=== PATIENT | male | born 1985 | race Caucasian/White ===

== ENCOUNTER 2018-02-15 20:45 | Emergency (ER) | payer OTHER ==
[2018-02-15] MEDS ORDERED: FAMOTIDINE 20 MG TABLET PO ONE (23:14)
--- NOTE | 2018-02-15 23:16 | ER Document Report ---
HPI - HPI Pain Level: 2 Context: Patient is a 32 year old male who presents to the ED complaining of epigastric pain, nausea and diarrhea for the past 2-3 days after she ate some hard boiled eggs in his fridge. Has not taken anything for his symptoms. Denies any difficulty tolerating PO today. admits to intermittent crmaping without focal abdominal pain - CONSTITUTIONAL Constitutional: DENIES: Fever, Chills - EENT EENT: REPORTS: Sore Throat. DENIES: Ear Pain, Eye problems - NEURO Neurology: DENIES: Headache, Weakness, Vision blurred, Dizzinesss / Vertigo - CARDIOVASCULAR Cardiovascular: DENIES: Chest pain - RESPIRATORY Respiratory: REPORTS: Trouble Breathing, Coughing - GASTROINTESTINAL Gastrointestinal: REPORTS: Abdominal Pain - URINARY Urinary: DENIES: Dysuria, Urgency, Frequency - REPRODUCTIVE Reproductive: DENIES: :, Postmenopausal, Abnormal bleeding / discharge - MUSCULOSKELETAL Musculoskeletal: DENIES: Extremity pain Past Medical History - Social History Smoking Status: Former Smoker Chew tobacco use (# tins/day): No Frequency of alcohol use: None Drug Abuse: None Family History: Reviewed & Not Pertinent Patient has suicidal ideation: No Patient has homicidal ideation: No Renal/ Medical History: Denies: Hx Peritoneal Dialysis Vertical Provider Document - CONSTITUTIONAL Agree With Documented VS: Yes Notes: PHYSICAL EXAM GENERAL: Alert, interacts well. HEAD: Normocephalic, atraumatic. EYES: Pupils equal, round, and reactive to light. Extraocular movements intact. ENT: Oral mucosa moist, tongue midline. NECK: Full range of motion. Supple. Trachea midline. LUNGS: Clear to auscultation bilaterally, no wheezes, rales, or rhonchi. No respiratory distress. HEART: Regular rate and rhythm. No murmurs, gallops, or rubs. ABDOMEN: Soft, nondistended, nontender. No guarding, rebound, or rigidity.. Bowel sounds present in all 4 quadrants. NEUROLOGICAL: Alert and oriented x4. Normal speech. PSYCH: Normal affect, normal mood. SKIN: Warm, dry, normal turgor. No rashes or lesions noted. - INFECTION CONTROL TRAVEL OUTSIDE OF THE [place] IN LAST 30 DAYS: No Course - Re-evaluation Re-evalutation: 02/15/18 23:15 Presentation of an overall well-appearing patient in no acute distress with complaints of nausea, vomiting, diarrhea. This is consistent with likely viral gastroenteritis vs. food poisoning. Patient has no abdominal tenderness on exam and specifically no tenderness in the RLQ, LLQ, RUQ. Overall well hydrated on exam. Able to tolerate oral intake here in the emergency department. Low clinical suspicion for any acute life-threatening etiology based on exam and history including acute cholecystitis, SBO, appendicitis, nephrolithiasis, or pylonephritis. Will plan for discharge at this time with return precautions and followup recommendations. Discharge - Discharge Clinical Impression: Gastritis Qualifiers: Gastritis type: unspecified gastritis Chronicity: acute Gastritis bleeding: without bleeding Qualified Code(s): K29.00 - Acute gastritis without bleeding Condition: Good Disposition: HOME, SELF-CARE Additional Instructions: Your symptoms appear to be most consistent with stomach or upper intestinal irritation. Please begin taking famotidine 40 mg in the morning and 40 mg at night. This medicine can be purchased directly [id number]. You may also take medicine such as Pepto-Bismol or Tums to assist with your pain. Please return to emergency department immediately if you have worsening of your pain, shortness of breath, vomiting, become unable to exert yourself due to pain or difficulty breathing, you pass out, or have any pain that radiates into your arms, jaw, or back. Please also return if you have any additional symptoms that are concerning to you. Referrals: [facility] [Provider Group] - Follow up as needed GURJIT MENDEZ MD [ACTIVE STAFF] - Follow up in 1 week
[2018-02-15 23:25] VITALS: BP 132/77
== END 2018-02-15 23:24 | disposition home or self-care (01) ==
LOC: ER 20:45
DX: K29.00 Acute gastritis without bleeding (principal); J02.9 Acute pharyngitis, unspecified; K59.00 Constipation, unspecified; R10.13 Epigastric pain; R11.0 Nausea; Z87.891 Personal history of nicotine dependence
CPT/HCPCS: 99283

== ENCOUNTER 2018-06-17 15:42 | Emergency (ER) | payer OTHER ==
[2018-06-17 15:53] VITALS: BP 135/69
--- NOTE | 2018-06-17 16:21 | ER Document Report ---
HPI - HPI Patient complains to provider of: Sore throat Pain Level: 3 Context: Patient is a 32-year-old healthy male complaining of sinus pain pressure and congestion, sore throat, cough 1 week. His and daughter are all sick with similar symptoms. Patient is afebrile. Associated Symptoms: Nonproductive cough, Earache, Headache. denies: Nausea, Vomiting Exacerbated by: Denies Relieved by: Denies Similar symptoms previously: Yes Recently seen / treated by doctor: No - EENT EENT: REPORTS: Sore Throat - REPRODUCTIVE Reproductive: DENIES: : Past Medical History - General Information source: Patient - Social History Smoking Status: Never Smoker Frequency of alcohol use: None Drug Abuse: None Lives with: Family Family History: Reviewed & Not Pertinent Patient has suicidal ideation: No Patient has homicidal ideation: No - Medical History Medical History: Negative Renal/ Medical History: Denies: Hx Peritoneal Dialysis Vertical Provider Document - CONSTITUTIONAL Agree With Documented VS: Yes Exam Limitations: No Limitations - INFECTION CONTROL TRAVEL OUTSIDE OF THE [place] IN LAST 30 DAYS: No - HEENT HEENT: Atraumatic, PERRLA, Pharyngeal Tenderness, Pharyngeal Erythema. negative : Pharyngeal Exudate Notes: Sinuses tender to palpation. No trismus. - NECK Neck: Normal Inspection, Supple - RESPIRATORY Respiratory: Breath Sounds Normal, No Respiratory Distress - CARDIOVASCULAR Cardiovascular: Regular Rate, Regular Rhythm - Nexium white flaky the first - MUSCULOSKELETAL/EXTREMETIES Musculoskeletal/Extremeties: MAEW, FROM - NEURO Level of Consciousness: Awake, Alert - of, Appropriate - DERM Integumentary: Warm, Dry, No Rash Course - Re-evaluation Re-evalutation: 06/17/18 16:20 History and physical are consistent with an acute sinusitis number respiratory infection. There are no signs of peritonsillar abscess, Kip's angina. No respiratory compromise. Patient is afebrile with no signs of dehydration or sepsis. Course of antibiotics will be prescribed. Home care, ED return precautions and primary care follow-up discussed with patient. Patient acknowledges understanding is agreeable with plan is stable for discharge - Vital Signs Vital signs: Temp Pulse Resp BP Pulse Ox 99.8 F 67 16 135/69 H 98 06/17/18 15:51 06/17/18 15:51 06/17/18 15:51 06/17/18 15:51 06/17/18 15:51 Discharge - Discharge Clinical Impression: Sinusitis Qualifiers: Sinusitis location: unspecified location Chronicity: acute Recurrence: non- recurrent Qualified Code(s): J01.90 - Acute sinusitis, unspecified Condition: Stable Disposition: HOME, SELF-CARE Instructions: Sinusitis ([facility]), Antibiotic Shot ([facility]), Steroid Medication Additional Instructions: Take medications as prescribed Recommend antihistamine/decongestant in addition to prescribed medications Push fluids May take ibuprofen for discomfort Follow-up with your primary care if pain persists Prescriptions: Amoxicillin Trihydrate [Amoxil 875 mg Tablet] 1 tab PO BID #20 tablet Prednisone [Deltasone 20 mg Tablet] 3 tab PO DAILY 5 Days tablet Forms: Return to Work
== END 2018-06-17 16:30 | disposition home or self-care (01) ==
LOC: ER 15:42
DX: J01.90 Acute sinusitis, unspecified (principal); J02.9 Acute pharyngitis, unspecified; R51 Headache
CPT/HCPCS: 87070; 87880; 99283

== ENCOUNTER 2019-01-13 11:43 | Emergency (ER) | payer OTHER ==
--- NOTE | 2019-01-13 12:12 | ER Document Report ---
ED Medical Screen (RME) - General Chief Complaint: Rectal Bleeding Stated Complaint: RECTAL BLEEDING Time Seen by Provider: 01/13/19 12:10 TRAVEL OUTSIDE OF THE [place] IN LAST 30 DAYS: No - HPI Notes: 01/13/19 12:10 Patient complaint of sudden onset of rectal bleeding this morning. He also has lower quadrant abdominal pain. He denies nausea, vomiting, chest pain or shortness of breath. Physical exam mild tenderness to palpation on the lower quadrant of the abdomen. - Related Data Allergies/Adverse Reactions: No Known Allergies Allergy (Verified 01/13/19 11:44) Past Medical History Renal/ Medical History: Denies: Hx Peritoneal Dialysis Physical Exam - Vital signs Vitals: Temp Pulse Resp BP Pulse Ox 98.0 F 62 18 122/75 96 01/13/19 11:50 01/13/19 11:50 01/13/19 11:50 01/13/19 11:50 01/13/19 11:50 Course - Vital Signs Vital signs: Temp Pulse Resp BP Pulse Ox 98.0 F 62 18 122/75 96 01/13/19 11:50 01/13/19 11:50 01/13/19 11:50 01/13/19 11:50 01/13/19 11:50
[2019-01-13 12:44] LABS: ABSOLUTE BASOPHILS # (AUTO) 0.1 10^3/uL (0.0-0.2); ABSOLUTE EOSINOPHILS # (AUTO) 0.1 10^3/uL (0.0-0.6); ABSOLUTE LYMPHOCYTES (AUTO) 2.1 10^3/uL (0.5-4.7); ABSOLUTE MONOCYTES (AUTO) 0.2 10^3/uL (0.1-1.4); ABSOLUTE NEUT (AUTO) 2.3 10^3/uL (1.7-8.2); BASOPHILS % (AUTO) 1.2 % (0-2); EOSINOPHILS % (AUTO) 1.5 % (0-6); HEMATOCRIT 44.2 % (37.9-51.0); HEMOGLOBIN 15.5 g/dL (13.5-17.0); LYMPHOCYTES % (AUTO) 44.1 % (13-45); MEAN CORPUSCULAR HEMOGLOBIN 30.3 pg (27.0-33.4); MEAN CORPUSCULAR VOLUME 87 fl (80-97); MONOCYTES % (AUTO) 3.4 % (3-13); PLATELET COUNT 223 10^3/uL (150-450); RED CELL DISTRIBUTION WIDTH 13.3 % (11.5-14.0); SEGMENTED NEUTROPHILS % (AUTO) 49.8 % (42-78); TOTAL CELLS COUNTED % (AUTO) 100 %; WHITE BLOOD COUNT 4.7 10^3/uL (4.0-10.5)
[2019-01-13 12:51] LABS: INTERNATIONAL RATION (INR) 0.93; PROTHROMBIN TIME 12.9 SEC (11.4-15.4)
[2019-01-13 12:52] LABS: PARTIAL THROMBOPLASTIN TIME 30.2 SEC (23.5-35.8)
[2019-01-13 12:59] LABS: ALANINE AMINOTRANSFERASE 27 U/L (21-72); ALBUMIN 5.1 g/dL (3.5-5.0); ALKALINE PHOSPHATASE 64 U/L (38-126); ANION GAP 10 (5-19); ASPARTATE AMINO TRANSFERASE 33 U/L (17-59); BILIRUBIN,DIRECT 0.2 mg/dL (0.0-0.4); BILIRUBIN,TOTAL 0.8 mg/dL (0.2-1.3); BLOOD UREA NITROGEN 17 mg/dL (7-20); CARBON DIOXIDE 28 mmol/L (22-30); CHLORIDE 101 mmol/L (98-107); GLUCOSE 88 mg/dL (75-110); POTASSIUM 4.5 mmol/L (3.6-5.0); SODIUM 139.3 mmol/L (137-145); TOTAL PROTEIN 7.7 g/dL (6.3-8.2)
--- NOTE | 2019-01-13 14:24 | ER Document Report ---
ED General - General Chief Complaint: Rectal Bleeding Stated Complaint: RECTAL BLEEDING Time Seen by Provider: 01/13/19 12:10 Primary Care Provider: ROBERTA BARR DO [Primary Care Provider] - Follow up as needed DICK WHITNEY MD [ACTIVE STAFF] - Follow up in 3-5 days GURJIT MENDEZ MD [ACTIVE STAFF] - Follow up in 3-5 days Notes: Patient is a 33-year-old male that presents to the emergency department for chief complaint of rectal bleeding. Patient states his been having on and off rectal bleeding over the past 3 months, but it seemed to be worse today and that is what brought him to the emergency department. He admits to having some bilateral lower abdominal pain associated with this. Denies having any nausea or vomiting. He has not seen anyone for this. He currently rates the pain in his abdomen is a 2 out of 10 describes as an aching sensation seems to be worse with his bowel movements. Denies any fevers, chills, night sweats, chest pain, shortness of breath, difficulty breathing. Past Medical History: Depression Past Surgical History: Denies surgical history Social History: Denies tobacco, alcohol or drug use. Family History: Reviewed and noncontributory for presenting illness Allergies: Reviewed, see documented allergy list. REVIEW OF SYSTEMS: Other than noted above, the 12 point review of systems was reviewed with the patient and were negative, all pertinent findings are included in the HPI. PHYSICAL EXAMINATION: Vital signs reviewed, nursing noted reviewed. GENERAL: Well-appearing, well-nourished and in no acute distress. HEAD: Atraumatic, normocephalic. EYES: Eyes appear normal, extraocular movements intact, sclera anicteric, conjunctiva are normal. ENT: nares patent, oropharynx clear without exudates. Moist mucous membranes. NECK: Normal range of motion, supple without lymphadenopathy LUNGS: Breath sounds clear to auscultation bilaterally and equal. No wheezes rales or rhonchi. HEART: Regular rate and rhythm without murmurs ABDOMEN: Soft, mild bilateral lower quadrant tenderness, normoactive bowel sounds. No rebound, guarding, or rigidity. No masses appreciated. EXTREMITIES: Nontender, good range of motion, no pitting or edema. NEUROLOGICAL: No focal neurological deficits. Moves all extremities spontaneously Motor and sensory grossly intact on exam. PSYCH: Normal mood, normal affect. SKIN: Warm, Dry, normal turgor, no rashes or lesions noted on exposed skin TRAVEL OUTSIDE OF THE [place] IN LAST 30 DAYS: No - Related Data Allergies/Adverse Reactions: No Known Allergies Allergy (Verified 01/13/19 11:44) Past Medical History - Social History Smoking Status: Never Smoker Frequency of alcohol use: None Drug Abuse: None Family History: Reviewed & Not Pertinent Patient has suicidal ideation: No Patient has homicidal ideation: No Renal/ Medical History: Denies: Hx Peritoneal Dialysis Psychiatric Medical History: Reports: Hx Depression Physical Exam - Vital signs Vitals: Temp Pulse Resp BP Pulse Ox 98.0 F 62 18 122/75 96 01/13/19 11:50 01/13/19 11:50 01/13/19 11:50 01/13/19 11:50 01/13/19 11:50 Course - Re-evaluation Re-evalutation: Patient seen and examined vital signs reviewed. Laboratory data and imaging were ordered as appropriate for the patient's prese nting symptoms and complaint, with consideration of any critical or life threatening conditions that may be associated with their obtained history and exam as noted above. Patient was treated with IV fluid Results were reviewed when available and demonstrated negative CT imaging, no anemia, blood work otherwise negative The patient was re-evaluated and was hemodynamically stable Evaluation was most consistent with rectal bleeding, unknown etiology, possible patient has ulcerative colitis or Crohn's disease, I want him to follow-up with gastroenterology. Results were discussed with the patient at this point, after careful consideration I feel that that patient can be discharged from the emergency department, the patient was educated treatments and reasons to return to the emergency department based on their presumed diagnosis as noted above, they were advised to followup with a primary care physician in 2-3 days. Patient was agreeable to plan of care. *Note is created using voice recognition software and may contain spelling, syntax or grammatical errors. Laboratory 01/13/19 01/13/19 01/13/19 12:26 12:26 12:26 WBC 4.7 RBC 5.10 Hgb 15.5 Hct 44.2 MCV 87 MCH 30.3 MCHC 35.0 RDW 13.3 Plt Count 223 Seg Neutrophils % 49.8 Lymphocytes % 44.1 Monocytes % 3.4 Eosinophils % 1.5 Basophils % 1.2 Absolute Neutrophils 2.3 Absolute Lymphocytes 2.1 Absolute Monocytes 0.2 Absolute Eosinophils 0.1 Absolute Basophils 0.1 PT 12.9 INR 0.93 APTT 30.2 Sodium 139.3 Potassium 4.5 Chloride 101 Carbon Dioxide 28 Anion Gap 10 BUN 17 Creatinine 0.95 Est GFR ( Amer) > 60 Est GFR (Non-Af Amer) > 60 Glucose 88 Calcium 10.0 Total Bilirubin 0.8 Direct Bilirubin 0.2 Neonat Total Bilirubin Not Reportable Neonat Direct Bilirubin Not Reportable Neonat Indirect Bili Not Reportable AST 33 ALT 27 Alkaline Phosphatase 64 Total Protein 7.7 Albumin 5.1 H Abdomen/Pelvis CT 01/13/19 14:23 IMPRESSION: No CT findings to explain abdominal pain or bloody diarrhea. - Vital Signs Vital signs: Temp Pulse Resp BP Pulse Ox 98.9 F 62 18 128/70 H 96 01/13/19 15:38 01/13/19 11:50 01/13/19 11:50 01/13/19 15:38 01/13/19 11:50 - Laboratory Result Diagrams: 01/13/19 12:26 01/13/19 12:26 Laboratory results interpreted by me: 01/13/19 12:26 Albumin 5.1 H Discharge - Discharge Clinical Impression: Rectal bleeding Condition: Stable Disposition: HOME, SELF-CARE Instructions: Rectal Bleeding, Unclear Cause ([facility]) Additional Instructions: Please follow-up with gastroenterology if you develop symptoms such as lightheadedness, passing out or feeling that your heart is racing, or you feel that the bleeding is continuing without stopping, do not hesitate to return to the emergency department sooner. Referrals: ROBERTA BARR DO [Primary Care Provider] - Follow up as needed DICK WHITNEY MD [ACTIVE STAFF] - Follow up in 3-5 days GURJIT MENDEZ MD [ACTIVE STAFF] - Follow up in 3-5 days
--- NOTE | 2019-01-13 15:04 | RADIOLOGY REPORT (SQ) ---
EXAM DESCRIPTION: CT ABD/PELVIS WITH IV ONLY COMPLETED DATE/TIME: 01/13/2019 2:45 pm REASON FOR STUDY: bloody diarrhea, abdominal pain COMPARISON: None. TECHNIQUE: CT scan of the abdomen and pelvis performed using helical scanning technique with dynamic intravenous contrast injection. No oral contrast. Images reviewed with lung, soft tissue, and bone windows. Reconstructed coronal and sagittal MPR images reviewed. Delayed images for evaluation of the urinary system also acquired. All images stored on PACS. All CT scanners at this facility use dose modulation, iterative reconstruction, and/or weight based d osing when appropriate to reduce radiation dose to as low as reasonably achievable (ALARA). [facility]: Dose Right [facility]: CareDose [facility]: Dose Right [facility]: Teradose 4D [facility]: Insurity CONTRAST TYPE AND DOSE: contrast/concentration: Isovue 350.00 mg/ml; Total Contrast Delivered: 89.0 ml; Total Saline Delivered: 70.0 ml RENAL FUNCTION: None required. The patient is less than 50 years old. RADIATION DOSE: CT Rad equipment meets quality standard of care and radiation dose reduction techniq ues were employed. CTDIvol: 6.6 - 9.4 mGy. DLP: 872 mGy-cm.. LIMITATIONS: None. FINDINGS: LOWER CHEST: No significant findings. No nodules or infiltrates. LIVER: Normal size. No masses. No dilated ducts. SPLEEN: Normal size. No focal lesions. PANCREAS: No masses. No significant calcifications. No adjacent inflammation or peripancreatic fluid collections. Pancreatic duct not dilated. GALLBLADDER: No identified stones by CT criteria. No inflammatory changes to suggest cholecystitis. ADRENAL GLANDS: No significant masses or asymmetry. RIGHT KIDNEY AND URETER: No solid masses. No significant calcifications. No hydronephrosis or hyd roureter. LEFT KIDNEY AND URETER: No solid masses. No significant calcifications. No hydronephrosis or hydr oureter. AORTA AND VESSELS: No aneurysm. No dissection. Renal arteries, SMA, celiac without stenosis. RETROPERITONEUM: No retroperitoneal adenopathy, hemorrhage or masses. BOWEL AND PERITONEAL CAVITY: No masses or inflammatory changes. No free fluid or peritoneal masses. APPENDIX: Normal. PELVIS: No mass. No free fluid. Normal bladder. ABDOMINAL WALL: No masses. No hernias. BONES: No significant or acute findings. OTHER: No other significant finding. IMPRESSION: No CT findings to explain abdominal pain or bloody diarrhea. TECHNICAL DOCUMENTATION: JOB ID: [id number] Quality ID # [id number]: Final reports with documentation of one or more dose reduction techniques (e.g., Au tomated exposure control, adjustment of the mA and/or kV according to patient size, use of iterative reconstruction technique) 2010 [employer]- All Rights Reserved Reading location - IP/workstation name: [email or web address]
[2019-01-13 15:39] VITALS: BP 128/70
== END 2019-01-13 15:37 | disposition home or self-care (01) ==
LOC: ER 11:43
DX: K62.5 Hemorrhage of anus and rectum (principal); R10.30 Lower abdominal pain, unspecified; F32.9 Major depressive disorder, single episode, unspecified
CPT/HCPCS: 36415; 74177; 80053; 85025; 85610; 85730; 99284

== ENCOUNTER 2019-02-18 16:47 | Emergency (ER) | payer OTHER ==
[2019-02-18 16:55] VITALS: BP 145/76
--- NOTE | 2019-02-18 18:17 | ER Document Report ---
HPI - HPI Time Seen by Provider: 02/18/19 16:56 Pain Level: 3 Context: Patient is a 33-year-old male who presents to the emergency department with a chief complaint of a sore throat. He has had a sore throat for the past week. His son was diagnosed with strep pharyngitis and is currently on amoxicillin. He denies any inability to swallow. He denies any fever. He does admit to having some sweats on and off. He does have a cough and notes some mucus. - CONSTITUTIONAL Constitutional: DENIES: Fever, Chills - EENT EENT: REPORTS: Sore Throat. DENIES: Ear Pain, Eye problems - NEURO Neurology: DENIES: Headache, Weakness, Vision blurred, Dizzinesss / Vertigo - CARDIOVASCULAR Cardiovascular: DENIES: Chest pain - RESPIRATORY Respiratory: DENIES: Trouble Breathing, Coughing - GASTROINTESTINAL Gastrointestinal: DENIES: Abdominal Pain, Black / Bloody Stools - URINARY Urinary: DENIES: Dysuria, Urgency, Frequency - REPRODUCTIVE Reproductive: DENIES: : - MUSCULOSKELETAL Musculoskeletal: DENIES: Extremity pain Past Medical History - Social History Smoking Status: Never Smoker Chew tobacco use (# tins/day): No Frequency of alcohol use: None Drug Abuse: None Family History: Reviewed & Not Pertinent Patient has suicidal ideation: No Patient has homicidal ideation: No Renal/ Medical History: Denies: Hx Peritoneal Dialysis Psychiatric Medical History: Reports: Hx Depression Vertical Provider Document - CONSTITUTIONAL Agree With Documented VS: Yes Exam Limitations: No Limitations General Appearance: No Apparent Distress - INFECTION CONTROL TRAVEL OUTSIDE OF THE [place] IN LAST 30 DAYS: No - HEENT HEENT: Atraumatic, Normocephalic, PERRLA, Pharyngeal Tenderness, Pharyngeal Erythema. negative: Conjuctival Injection, Pharyngeal Exudate, Tympanic Membrane Red, Tympanic Membrane Bulging - NECK Neck: Normal Inspection. negative: Lymphadenopathy-Left, Lymphadenopathy-Right - RESPIRATORY Respiratory: Breath Sounds Normal, No Respiratory Distress - CARDIOVASCULAR Cardiovascular: Regular Rate Pulses: Normal: Radial - MUSCULOSKELETAL/EXTREMETIES Musculoskeletal/Extremeties: FROM - NEURO Level of Consciousness: Awake, Alert, Appropriate Motor/Sensory: No Motor Deficit, No Sensory Deficit - DERM Integumentary: Warm, Dry Course - Re-evaluation Re-evalutation: 02/18/19 18:17 Patient's rapid strep is negative at this time. It will be sent for culture. I do not suspect a peritonsillar abscess, Kip's angina, or any life-threatening this time. Patient's airway is patent. He will be started on Claritin, which she has at home. Advised him that he needs to take his Claritin every day. He will be called if his culture is positive. Verbal discharge instructions were given to the patient. They verbalized understanding. They are stable for discharge. - Vital Signs Vital signs: Temp Pulse Resp BP Pulse Ox 98.2 F 82 16 145/76 H 98 02/18/19 16:53 02/18/19 16:53 02/18/19 16:53 02/18/19 16:53 02/18/19 16:53 Discharge - Discharge Clinical Impression: Sore throat Condition: Stable Disposition: HOME, SELF-CARE Instructions: Sore Throat ([facility]) Additional Instructions: Sore Throat Sore throats may be caused by viruses, bacteria, or fungi. Most are due to a virus, and must get better on their own. Bacterial sore throats, particularly those due to "strep," need treatment with antibiotics. To relieve symptoms, take acetaminophen for pain. Sip clear liquids frequently, or eat popsicles or ice chips. Anesthetic sprays or lozenges may help. Make sure the air in the room is not too dry. Take Claritin every day. Call the doctor if there is no improvement in two days, or if you have difficulty breathing, increasing throat pain, high fever, rash, or frequent vomiting. Referrals: ROBERTA BARR DO [Primary Care Provider] - Follow up as needed
== END 2019-02-18 18:23 | disposition home or self-care (01) ==
LOC: ER 16:47
DX: J02.9 Acute pharyngitis, unspecified (principal); R61 Generalized hyperhidrosis; R05 Cough; Z20.818 Contact with and (suspected) exposure to other bacterial communicable diseases
CPT/HCPCS: 87070; 87077; 87880; 99283

== ENCOUNTER 2019-02-22 20:50 | Emergency (ER) | payer OTHER ==
[2019-02-22] MEDS ORDERED: AMOXICILLIN TRIHYDRATE 500 MG CAPSULE PO ONE (23:19)
[2019-02-22] MEDS ORDERED: DEXAMETHASONE SOD PHOS INJ 10 MG/1 ML VIAL IM ONE (23:20)
--- NOTE | 2019-02-22 23:23 | ER Document Report ---
HPI - HPI Time Seen by Provider: 02/22/19 23:07 Pain Level: 3 Context: Patient is a 33 year old male that comes to the ED for chief complaint of sore throat. He states that he was seen 4 days ago and had a negative strep throat test, he states his son and his are both seen and treated for strep throat, his son tested positive for strep throat already. He reports minimal congestion and cough, was placed on Claritin and states this does not seem to be helping. He denies fever/chills. He denies difficulty breathing or swallowing but does report his worst symptom is painful swallowing. He denies any past medical history or daily medications. - REPRODUCTIVE Reproductive: DENIES: : Past Medical History - General Information source: Patient - Social History Smoking Status: Never Smoker Drug Abuse: None Lives with: Family Family History: Reviewed & Not Pertinent Renal/ Medical History: Denies: Hx Peritoneal Dialysis Psychiatric Medical History: Reports: Hx Depression - Immunizations Immunizations up to date: Yes Hx Diphtheria, Pertussis, Tetanus Vaccination: Yes Vertical Provider Document - CONSTITUTIONAL General Appearance: WD/WN, No Apparent Distress - INFECTION CONTROL TRAVEL OUTSIDE OF THE [place] IN LAST 30 DAYS: No - HEENT HEENT: Atraumatic, Normocephalic. negative: Normal ENT Exam - Mild erythema and enlargement of bilateral tonsils, uvula normal, no evidence of peritonsillar abscess, oral pharyngeal exam ear exam is unremarkable. Sinus exam unremarkable. - NECK Neck: Other - Mild bilateral anterior cervical adenopathy - RESPIRATORY Respiratory: Breath Sounds Normal, No Respiratory Distress - CARDIOVASCULAR Cardiovascular: Regular Rate, Regular Rhythm - GI/ABDOMEN Gastrointestinal: Abdomen Soft, Abdomen Non-Tender - BACK Back: Normal Inspection - NEURO Level of Consciousness: Awake, Alert, Appropriate - DERM Integumentary: Warm, Dry, No Rash Course - Re-evaluation Re-evalutation: Group A strep was positive but his throat culture was reviewed and shows group C strep. Patient with multiple strep exposures. Patient with ongoing symptoms that have not resolved. Patient with mild tonsillitis, pharyngitis, and anterior cervical adenopathy. No fever. No cough. Discussed with patient. Decision was made to treat with dexamethasone and amoxicillin because of his ongoing symptoms. Discussed expectations, follow-up, return precautions. Patient states understanding and agreement. - Vital Signs Vital signs: Temp Pulse Resp BP Pulse Ox 97.9 F 80 20 132/78 H 100 02/22/19 20:54 02/22/19 20:54 02/22/19 20:54 02/22/19 20:54 02/22/19 20:54 Discharge - Discharge Clinical Impression: Pharyngitis Qualifiers: Pharyngitis/tonsillitis etiology: streptococcus Qualified Code(s): J02.0 - Streptococcal pharyngitis Condition: Stable Disposition: HOME, SELF-CARE Additional Instructions: Your culture shows Group C Strep. Because of your ongoing symptoms we are treating you with amoxicillin, you have been given a dose of dexamethasone which should help with the swelling of the lymph nodes and tonsils. I still do recommend that you continue Claritin and take this daily. Take Tylenol or ibuprofen if needed for pain. Symptoms should gradually resolve. Follow-up with primary care. Return if you worsen including difficulty swallowing or breathing, severe worsening pain, fever, or any other concerning symptoms. Prescriptions: Amoxicillin Trihydrate [Amoxil 500 mg Capsule] 500 mg PO BID 10 Days #20 capsule Forms: Return to Work Referrals: ROBERTA BARR DO [Primary Care Provider] - Follow up as needed
[2019-02-23 00:02] VITALS: BP 129/75
== END 2019-02-23 00:05 | disposition home or self-care (01) ==
LOC: ER 20:50
DX: J02.0 Streptococcal pharyngitis (principal); R09.81 Nasal congestion; R05 Cough
CPT/HCPCS: 99282; 96372; J1100

== ENCOUNTER 2019-04-03 10:08 | Emergency (ER) | payer OTHER ==
--- NOTE | 2019-04-03 11:19 | ER Document Report ---
HPI - HPI Patient complains to provider of: sore throat Time Seen by Provider: 04/03/19 10:59 Onset: Other - 1-2 months Onset/Duration: Persistent Pain Level: 2 Context: Patient presents emergency department with complaints of sore throat for the past 1 to 2 months. Reports red dots to back of throat. Reports he was treated for strep recently. Is unsure of re-exposure. Reports his son had strep after him. Denies other symptoms such as fever vomiting diarrhea. Reports nasal congestion. He reports he is tried multiple [id number] medications without relief of symptoms. 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 He reports they have done nothing. No other rash to the hands or feet. Very faint scattered rash to elbow flexors. Patient is talking in a clear voice with good airway no difficulties. Associated Symptoms: Sore throat Exacerbated by: Denies Relieved by: Denies Similar symptoms previously: Yes Recently seen / treated by doctor: Yes - REPRODUCTIVE Reproductive: DENIES: : Past Medical History - General Information source: Patient - Social History Smoking Status: Unknown if Ever Smoked Cigarette use (# per day): No Frequency of alcohol use: None Drug Abuse: None Occupation: [employer] [place] Lives with: Family Family History: Reviewed & Not Pertinent Patient has suicidal ideation: No Patient has homicidal ideation: No Renal/ Medical History: Denies: Hx Peritoneal Dialysis Psychiatric Medical History: Reports: Hx Depression Surgical Hx: Negative - Immunizations Immunizations up to date: Yes Hx Diphtheria, Pertussis, Tetanus Vaccination: Yes Vertical Provider Document - CONSTITUTIONAL Agree With Documented VS: Yes Exam Limitations: No Limitations General Appearance: WD/WN, No Apparent Distress - INFECTION CONTROL TRAVEL OUTSIDE OF THE [place] IN LAST 30 DAYS: No - HEENT HEENT: Atraumatic, Normal ENT Exam, Normocephalic. negative: Conjuctival Injection, Pharyngeal Exudate, Pharyngeal Erythema, Tympanic Membrane Red, Tym panic Membrane Bulging Notes: Some erythemic areas noted to roof of mouth. - NECK Neck: Normal Inspection, Supple. negative: Lymphadenopathy-Left, Lymphadenopathy-Right - RESPIRATORY Respiratory: Breath Sounds Normal, No Respiratory Distress - CARDIOVASCULAR Cardiovascular: Regular Rate - MUSCULOSKELETAL/EXTREMETIES Musculoskeletal/Extremeties: MAEW, FROM - NEURO Level of Consciousness: Awake, Alert, Appropriate Motor/Sensory: No Motor Deficit - DERM Integumentary: Warm, Dry, Rash Adult Front & Back Diagram: 1 - flat erythemic spots to bilateral elbow flexors 2 - flat erythemic spots to bilateral elbow flexors Course - Re-evaluation Re-evalutation: 04/03/19 11:18 Patient is nontoxic looking does not appear to be strep but will complete strep test for patient. Patient instructed on process. 04/03/19 12:00 Strep test negative. Patient was instructed to culture pending and [place] Dictation of this chart was performed using voice recognition software; theref ore, there may be some unintended grammatical errors. - Vital Signs Vital signs: Temp Pulse Resp BP Pulse Ox 98.2 F 63 18 137/70 H 99 04/03/19 10:13 04/03/19 10:13 04/03/19 10:13 04/03/19 10:13 04/03/19 10:13 Discharge - Discharge Clinical Impression: Sore throat Condition: Stable Disposition: HOME, SELF-CARE Additional Instructions: *You have been evaluated for a sore throat, nasal congestion *Warm salt water gargles and throat lozenges for comfort *A throat culture is pending. You will be contacted in 2 to 3 days if you should need antibiotics. *Good hand washing *Follow-up with your BAS within 3 days for recheck *Return to ED for worsening condition change, needs Forms: Elevated Blood Pressure Referrals: BRYCE CARTER MD [Primary Care Provider] - Follow up in 3-5 days
[2019-04-03 12:20] VITALS: BP 116/80
== END 2019-04-03 12:20 | disposition home or self-care (01) ==
LOC: ER 10:08
DX: J02.9 Acute pharyngitis, unspecified (principal); R09.81 Nasal congestion; R21 Rash and other nonspecific skin eruption
CPT/HCPCS: 87070; 87880; 99283

== ENCOUNTER 2019-08-12 19:48 | Emergency (ER) | payer OTHER ==
[2019-08-12] MEDS ORDERED: DEXAMETHASONE SOD PHOS INJ 10 MG/1 ML VIAL IM ONE (20:19)
[2019-08-12] MEDS ORDERED: MAG HYDROX/AL HYDROX/SIMETH SUSP 30 ML UDCUP PO ONE (20:20)
[2019-08-12] MEDS ORDERED: METOCLOPRAMIDE HCL ORAL SOLN 10 MG/10 ML UDCUP PO ONE (20:20)
[2019-08-12] MEDS ORDERED: LIDOCAINE 2% VISCOUS SOLN 20 ML UDCUP PO ONE (20:20)
--- NOTE | 2019-08-12 20:21 | ER Document Report ---
ED Medical Screen (RME) - General Chief Complaint: Sore Throat Stated Complaint: SORE THROAT Time Seen by Provider: 08/12/19 20:15 Primary Care Provider: BRYCE CARTER MD [Primary Care Provider] - Follow up as needed TRAVEL OUTSIDE OF THE [place] IN LAST 30 DAYS: No - HPI Notes: 08/12/19 20:20 Patient is a 34-year-old male complaining of acute on chronic sore throat over the past week. Patient states that he normally has pain to his throat for the last several years, but has not been able to go see an ENT yet. Patient states that another urgent care placed him on nystatin oral solution. Patient states that he has had a shot in the past which help did help with his swelling and he believes it was a steroid. No other fever or recent illness. PHYSICAL EXAMINATION: GENERAL: Well-appearing, well-nourished and in no acute distress. A&Ox4. Answers questions appropriately. Moves comfortably w/o notable distress ENT: Nares patent and without discharge. oropharynx mild erythema without exudates. No significant tonsilar hypertrophy no exudate. No palatine shift. Uvula midline. No tongue protrusion. No drooling, hoarseness, or airway compromise. Moist mucous membranes. No sinus tenderness. - Related Data Allergies/Adverse Reactions: No Known Allergies Allergy (Verified 02/18/19 16:48) Past Medical History Renal/ Medical History: Denies: Hx Peritoneal Dialysis Psychiatric Medical History: Reports: Hx Depression - Immunizations Immunizations up to date: Yes Hx Diphtheria, Pertussis, Tetanus Vaccination: Yes Physical Exam - Vital signs Vitals: Temp Pulse Resp BP Pulse Ox 98.0 F 53 L 17 127/86 H 99 08/12/19 19:57 08/12/19 19:57 08/12/19 19:57 08/12/19 19:57 08/12/19 19:57 Course - Vital Signs Vital signs: Temp Pulse Resp BP Pulse Ox 98.0 F 53 L 17 127/86 H 99 08/12/19 19:57 08/12/19 19:57 08/12/19 19:57 08/12/19 19:57 08/12/19 19:57 Doctor's Discharge - Discharge Referrals: BRYCE CARTER MD [Primary Care Provider] - Follow up as needed
--- NOTE | 2019-08-12 20:38 | ER Document Report ---
HPI - HPI Patient complains to provider of: sore throat Time Seen by Provider: 08/12/19 20:15 Onset: Other Onset/Duration: Persistent, Worse Severity: Severe Pain Level: 5 Context: This 34-year-old male presents emergency department with complaints of a severe sore throat. Reports severe pain when he swallows. Reports feels like his swollen knees having difficulty. Reports he was recently seen at the urgent care and treated for thrush. He reports for the past couple years he has had trouble with swallowing sinuses sore throats. He was in the process is being evaluated in the but he was discharged. Denies fever vomiting diarrhea. Patient has a clear voice good airway. Associated Symptoms: None Exacerbated by: Food Relieved by: Denies Similar symptoms previously: Yes Recently seen / treated by doctor: Yes - EENT EENT: REPORTS: Sore Throat - REPRODUCTIVE Reproductive: DENIES: : Past Medical History - General Information source: Patient - T - Social History Smoking Status: Never Smoker Chew tobacco use (# tins/day): No Frequency of alcohol use: None Drug Abuse: None Family History: Reviewed & Not Pertinent Patient has suicidal ideation: No Patient has homicidal ideation: No Renal/ Medical History: Denies: Hx Peritoneal Dialysis Psychiatric Medical History: Reports: Hx Depression - Immunizations Immunizations up to date: Yes Hx Diphtheria, Pertussis, Tetanus Vaccination: Yes Vertical Provider Document - CONSTITUTIONAL Agree With Documented VS: Yes Exam Limitations: No Limitations General Appearance: WD/WN, No Apparent Distress - INFECTION CONTROL TRAVEL OUTSIDE OF THE [place] IN LAST 30 DAYS: No - HEENT HEENT: Atraumatic, Normocephalic. negative: Pharyngeal Exudate, Pharyngeal Erythema - Good airway opens mouth wide no tonsillar hypertrophy no exudate no trismus, Tympanic Membrane Red - NECK Neck: Supple - RESPIRATORY Respiratory: No Respiratory Distress - Look like - CARDIOVASCULAR Cardiovascular: Regular Rate - Family 1 of those Course - Re-evaluation Re-evalutation: 08/12/19 20:59 This 34-year-old male presents with complaints of severe sore throat, reports he has had this for couple years is worsening patient is grimacing as he swallows. No obvious swelling no tonsillar hypertrophy no exudate noted. Patient has good airway. Will do CT of the soft tissue of the neck. 08/13/19 CT is negative. Patient was instructed on results. Instructed follow-up with ENT. He was also instructed that a throat culture is pending if he needs antibiotics we will contact him. He verbalized understand all instructions. Soft Tissue Neck CT 08/12/19 20:57 IMPRESSION: No specific findings are noted to suggest etiology of the patient's neck pain. TECHNICAL DOCUMENTATION: Quality ID # 436: Final reports with documentation of one or more dose reduction techniques (e.g., Automated exposure control, adjustment of the mA and/or kV according to patient size, use of iterative reconstruction technique) copyright 2011 [employer]- All Rights Reserved - Vital Signs Vital signs: Temp Pulse Resp BP Pulse Ox 98.0 F 53 L 17 127/86 H 99 08/12/19 19:57 08/12/19 19:57 08/12/19 19:57 08/12/19 19:57 08/12/19 19:57 - Diagnostic Test Radiology reviewed: Image reviewed, Reports reviewed Discharge - Discharge Clinical Impression: Sore throat Condition: Stable Disposition: HOME, SELF-CARE Instructions: ENT, Sore Throat ([facility]) Additional Instructions: *You have been evaluated for a sore throat *Your strep test was negative. A throat culture is pending. You will be contacted should you need antibiotics *CT of your throat was negative *In the meantime gargle with warm salt water and utilize throat lozenges for comfort *Do not let anyone drink/eat after you *Good hand washing *Follow-up with a primary care provider within 1 week for recheck. Follow-up with ENT *Return to ED for worsening condition change, needs Referrals: BRYCE CARTER MD [NO LOCAL MD] - Follow up in 3-5 days
--- NOTE | 2019-08-12 22:16 | RADIOLOGY REPORT (SQ) ---
EXAM DESCRIPTION: CT NECK WITH IV CONTRAST COMPLETED DATE/TME: 08/12/2019 20:57 CLINICAL HISTORY: 34 years, Male, pain, tongue feels swollen, diff swallowing COMPARISON: None. TECHNIQUE: CT neck soft tissues following intravenous administration of contrast. Images stored on PACS. All CT scanners at this facility use dose modulation, iterative reconstruction, and/or weight based dosing when appropriate to reduce radiation dose to as low as reasonably achievable (ALARA). [facility]: Dose Right [facility]: CareDose [facility]: Dose Right [facility]: Teradose 4D [facility]: Smart [employer] LIMITATIONS: Motion and streak artifact through the oropharynx. FINDINGS: Limited evaluation through the skull base reveals no acute intracranial abnormalities or abnormal post contrast enhancement. The visualized vessels are patent and normal in caliber. Few small lymph nodes are scattered throughout the neck soft tissues bilaterally none of which are pathologically enlarged by CT measurement criteria. The bilateral parotid, bilateral submandibular and thyroid glands are within normal limits. Limited evaluation through the oropharynx secondary to streak artifact from dental amalgam. The nasal cavity, posterior nasopharynx, oral cavity, oropharynx, larynx and hypopharynx are within normal limits without abnormal enhancement mass or mass effect. The airways are patent. Limited evaluation of the lung apices are clear. The osseous structures are within normal limits. IMPRESSION: No specific findings are noted to suggest etiology of the patient's neck pain. TECHNICAL DOCUMENTATION: Quality ID # [id number]: Final reports with documentation of one or more dose reduction techniques (e.g., Automated exposure control, adjustment of the mA and/or kV according to patient size, use of iterative reconstruction technique) copyright 2011 [employer]- All Rights Reserved
[2019-08-12 22:48] VITALS: BP 126/84
== END 2019-08-12 22:36 | disposition home or self-care (01) ==
LOC: ER 19:48
DX: J02.9 Acute pharyngitis, unspecified (principal)
CPT/HCPCS: 99283; 96374; 87070; 87880; 70491; J3490; J1100